=== PATIENT | female | born 1980 | race Caucasian/White ===

== ENCOUNTER 2017-04-16 00:16 | Emergency (ER) | payer OTHER ==
[2017-04-16] MEDS ORDERED: methylPREDNISolone Sodium Succinate 125 MG/2 ML SDV IM ONE (00:37)
[2017-04-16] MEDS ORDERED: Racepinephrine 2.25% 0.5 ML Neb Soln NEB ONE (00:37)
[2017-04-16] MEDS ORDERED: Racepinephrine 2.25% 0.5 ML Neb Soln ONE (00:39)
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
[2017-04-16 02:23] VITALS: BP 135/88
--- NOTE | 2017-04-17 09:12 | CR ---
Neck Soft Tissue HISTORY: Pain COMPARISON: None FINDINGS: Epiglottis appears normal. No subglottic narrowing. Visualized bony structures appear unrem arkable. Impression: Negative soft tissue neck.
--- NOTE | 2017-04-17 09:13 | CR ---
Chest 2V HISTORY: Stridor COMPARISON: None FINDINGS: Cardiac size and pulmonary vessels normal. No infiltrates or effusions.
== END 2017-04-16 02:06 | disposition home or self-care (01) ==
LOC: JP.ED 00:16
DX: J05.0 Acute obstructive laryngitis [croup] (principal); Z88.2 Allergy status to sulfonamides; Z88.1 Allergy status to other antibiotic agents
CPT/HCPCS: 36415; 70360; 71020; 80053; 85025; 94640; 96372; 99285; J2930